=== PATIENT | male | born 1975 ===

== ENCOUNTER 2024-08-22 14:28 | Emergency (ER) | payer OTHER ==
[~2024-08-22] VITALS: Ht 170.2 cm; Wt 72.7 kg
[2024-08-22 14:35] VITALS: TEMP 97.8
[2024-08-22] MEDS: PERTUSS(ACELL),DIPH,TET/PF 0.5 ML SYRINGE [ADULT] IM. ONE (16:44)
[2024-08-22] MEDS ORDERED: HYDR-4062 PO (16:45)
[2024-08-22] MEDS ORDERED: CEPH-558 PO (16:45)
[2024-08-22 17:00] VITALS: BP 118/82; PULSE 72; RESP 16; O2SAT 98
== END 2024-08-22 15:21 | disposition left against medical advice (07) ==
LOC: EMS 14:28
DX: T22.222A Burn of second degree of left elbow, initial encounter (principal); T31.0 Burns involving less than 10% of body surface; X58.XXXA Exposure to other specified factors, initial encounter; Y93.89 Activity, other specified; Y92.89 Other specified places as the place of occurrence of the external cause; Y99.0 Civilian activity done for income or pay
CPT/HCPCS: 99283; Z7502